=== PATIENT | female | born 1950 | race Caucasian/White ===

== ENCOUNTER 2016-06-15 06:04 | Day surgery (SDC) | payer MEDICARE, OTHER ==
[2016-06-09 13:40] LABS: HEMATOCRIT 43.4 % (36.0-48.0); HEMOGLOBIN 14.9 g/dL (12.0-16.0)
[2016-06-09 13:48] LABS: PARTIAL THROMBO TIME 32.5 SEC (22.5-37.2)
--- NOTE | ~2016-06-15 | OP ---
Record Of Operation [facility] [address] [place]. [address] NAME: YOLANDE PRATHER : 46 STATUS : [facility]#: [id number] AGE: 66 ADM/REG DATE : 06/15/16 MR#: [id number] REPORT SERV DATE: 06/20/16 DICTATED BY: DEVIN HINKLE DATE: 06/19/16 REPORT STATUS : Draft TRANSCRIBED BY: AB DATE: 06/19/16 DATE OF PROCEDURE: 06/15/2016 PREOPERATIVE DIAGNOSES: 1. Chronic rhinosinusitis. 2. Deviated nasal septum. POSTOPERATIVE DIAGNOSES: 1. Chronic rhinosinusitis. 2. Deviated nasal septum. PROCEDURES: 1. Bilateral maxillary antrostomy with tissue removal endoscopically. 2. Bilateral total ethmoidectomy. 3. Bilateral frontal sinusotomy. 4. Bilateral sphenoid sinusotomy. 5. Septoplasty. SURGEON: Devin Hinkle M.D. ANESTHESIA: General endotracheal anesthesia was utilized. FINDINGS: Right septal spur pushing into the right middle meatus blocking access to the ethmoids and to the sphenoid cavity. ESTIMATED BLOOD LOSS: 25 mL. COMPLICATIONS: No complications. Chronic rhinosinusitis findings with mucosal thickening in multiple sinuses. INDICATIONS FOR PROCEDURE: This is a 66-year-old female who was treated with maximum medical therapy including steroids, antibiotics, and rhinitis medications, and despite this followup, CT scan showed chronic pansinusitis and deviated nasal septum. She has indications for procedure described. She was described the risks and benefits of the procedure including blood loss, infection, risk of anesthesia, pain, bleeding postoperatively, and the needs for further surgeries. She voiced understanding. Signed the consent. The consent was placed on chart at the time of operation. PROCEDURE IN DETAIL: The patient was wheeled to the OR suite and placed on the OR table in supine position. She was intubated and placed under general endotracheal anesthesia. She had been sprayed in the preoperative holding area with Afrin nasal spray 30 minutes prior to the procedure, and she had been sprayed just right after the intubation as well. I would place 4% cocaine-soaked cottonoids in each side of her nasal cavity for approximately 3 minutes to 5 minute. The table was turned 90 degrees and she was prepped and draped in a standard fashion for endoscopic sinus surgery. This would be done using 0, 30, and 70 Record Of Operation [facility] [address] [place]. [address] NAME: YOLANDE PRATHER : 46 STATUS : [facility] PAT#: [id number] AGE: 66 ADM/REG DATE : 06/15/16 MR#: [id number] REPORT SERV DATE: 06/20/16 DICTATED BY: DEVIN HINKLE DATE: 06/19/16 REPORT STATUS : Draft TRANSCRIBED BY: AB DATE: 06/19/16 degree scopes. I would begin on the patient's left hand side. She has a large septal spur on the right. On the left hand side, I would inject along the middle turbinate using a 1 mL 1% lidocaine with 1:100,000 epinephrine, and along the uncinate similar amount. I medialized the middle turbinate, elevated the uncinate, came through using backbiter. I completed my uncinectomy using microdebrider. I identified the maxillary sinus os using a sinus seeker and widened this using a combination of backbiter, straight Natalio-Cut, and microdebrider. I did leave the posterior fontanelle area intact and I did not cut into this and injected the ethmoid bulla base using 1 mL of local. I then came into this using a 45- degree curette entering the ethmoid cavity. Then using a microdebrider, I completed my anterior ethmoidectomy back to the basal lamella of the middle turbinate. I went superior to the skull base, laterally to the lamina papyracea. I would enter into the posterior cells through the basal lamella of the middle turbinate and I completed my ethmoidectomy in this area using a combination of microdebrider and straight Natalio-Cut, until I had a large ethmoid cavity. I irrigated this thoroughly. I then went back to the frontal recess. Using the frontal introducer with Acclarent balloon system, I pushed a wire into the frontal sinus. I continued this to the forehead as it led up, I placed the balloon over this and inflated this to 12 atmospheres three different times. I then irrigated this and suctioned this. I could visualize the frontal sinus using a 70 degree scope at this point. At this point, I would lateralize the middle turbinate and lateralize the superior turbinate using the sphenoid sinus introducer. I placed the wire in sphenoid sinus with the Acclarent balloon system and then inflated the balloon twice in the sphenoid os. I could visualize the sinus after this and inflated to 12 atmospheres. This was suctioned and the sphenoid was suctioned on this side. I then turned my attention to the right hand side. As noted previously, the right septal spur was occluding my approach, so I had to perform an endoscopic septoplasty. I would inject along the septum using 0.5 mL of local. I made a vertical incision using a 15-blade and elevated ipsilateral flaps over the septal spur. I made a cut into the cartilage and then I would dissect out the cartilage and the spur using combination of caudal Kristy and Pediatric [place], until I had removed the spur in its entirety. I brought the flaps back into place. I would place a mattress suture 4-0 chromic gut. I had a nice straight septum. I provided access to both the middle meatus and sphenoid after this spur was removed. So at this point, I injected the middle turbinate using 1 mL of local anesthetic, using another mL of local and medialized the middle turbinate. I elevated the uncinate using a sinus seeker, then came to this using a backbiter. I completed my uncinectomy using microdebrider. At this point, I would place my frontal introducer into the frontal recess with Acclarent balloon system. The wire was passed into the frontal sinus, and I could see the light through the forehead. I placed the balloon over the wire and inflated this three times to 12 atmospheres and visualized the frontal sinus using a 70-degree scope. We suctioned this out thoroughly. We irrigated it with sterile saline as well and suctioned this. At this point, I injected in the ethmoid bulla using spinal needle 1 mL of local. I came to the ethmoid bulla using 45-degree curette, back to the anterior ethmoid air cells, the basal lamella. I then using a microdebrider completed my anterior ethmoidectomy to the skull base and lamina papyracea on the basal lamella of the middle turbinate. I came to the basal lamella into the posterior air cells and completed my posterior ethmoidectomy in light fashion. We also used a straight Natalio-Cut to remove partitions from this area also until I had a nice large cavity ethmoid chamber. I irrigated this area out. I then lateralized the middle turbinate and would lateralize the inferior turbinate as well. Then using the sphenoid sinus introducer Record Of Operation [facility] [address] [id number] NAME: YOLANDE PRATHER : 46 STATUS : [facility]#: [id number] AGE: 66 ADM/REG DATE : 06/15/16 MR#: [id number] REPORT SERV DATE: 06/20/16 DICTATED BY: DEVIN HINKLE DATE: 06/19/16 REPORT STATUS : Draft TRANSCRIBED BY: AB DATE: 06/19/16 to the balloon system, I would place the wire into the sphenoid os. I inflated this twice at 6 and then 12 atmospheres until I had wide opening in the sphenoid sinus. I visualized this using the 0 degree scope, suctioned this, and the irrigant was suctioned thoroughly as well. I then moved the middle turbinates back into place. I suctioned out both sides of the nasal cavity. I would outfracture the inferior turbinate. I had a nice nasal airway on both sides, straight septum, and good hemostasis in both ethmoid cavities and maxillary cavities. I did not bite into the posterior fontanelle on either side. There was minimal bleeding. Total blood loss of procedure was 25 mL. I suctioned out the pharynx. At this point, the patient was turned 90 degrees and returned to the care of anesthesiologist. Subsequently awoken, extubated, and stably transferred to the recovery area. There were no complications. The patient tolerated the procedure well. CHAITANYA/AB Devin Hinkle M.D. / [id number] CC: Kunal Carvajal M.D.
[~2016-06-15 06:04] MED LIST: ADVAIR INHALER; ANTIFUNGAL PO; ASAB PO; BIOTIN PO; BREO ELLIPTA 21 EACH INH; COMBIVENT INH; COMBIVENT RESPIM4 GM INH; ESTRACE1 MG PO; ESTRADIOL PO; HARD NAILS PO; LUMIGAN2.5 ML OPH; MELATIN PO; MULTIPLE VIT PO; MULTIVITAMI1 PO; NEXIUM PO; OLOPATADINE; PREDNISONE PO; SAM E PO; SINGULAIR1 PO; T PO; TRICOR145 PO; XYZAL5 MG PO
== END 2016-06-15 14:22 | disposition home or self-care (01) ==
LOC: SDC 06:04
PROVIDERS: Otolaryngology
PROC: 09SM0ZZ Reposition Nasal Septum, Open Approach (ICD-10-PCS; principal; 2016-06-15 07:15)
PROC: 09TU4ZZ Resection of Right Ethmoid Sinus, Percutaneous Endoscopic Approach (ICD-10-PCS; 2016-06-15 07:15)
PROC: 09TV4ZZ Resection of Left Ethmoid Sinus, Percutaneous Endoscopic Approach (ICD-10-PCS; 2016-06-15 07:15)
DX: J32.9 Chronic sinusitis, unspecified (principal); H40.9 Unspecified glaucoma; J45.909 Unspecified asthma, uncomplicated; K21.9 Gastro-esophageal reflux disease without esophagitis; Z88.0 Allergy status to penicillin; Z88.5 Allergy status to narcotic agent; E78.00 Pure hypercholesterolemia, unspecified
CPT/HCPCS: 85014; 85018; 85730; 88305; 93005; A9270-GY; C1726; C1887; J0690; J1170; J2250; J2370; J2405; J2710; J3010